=== PATIENT | male | born 1960 | race Caucasian/White ===

== ENCOUNTER → 2017-12-09 | Outpatient (CLI) | payer OTHER ==
--- NOTE | 2017-12-09 16:16 | US ---
EXAMINATION TYPE: US carotid duplex BILAT DATE OF EXAM: 12/09/2017 COMPARISON: NONE CLINICAL HISTORY: Z82.49 Family history of ischemic heart disease. Borderline HTN. No hx of TIA's or stroke. No surgeries. EXAM MEASUREMENTS: RIGHT: Peak Systolic Velocity (PSV) cm/sec ----- Right CCA: 114.4 ----- Right ICA: 95.5 ----- Right ECA: 71.2 ICA/CCA ratio: 0.8 RIGHT: End Diastole cm/sec ----- Right CCA: 36.1 ----- Right ICA: 36.1 ----- Right ECA: 9.3 LEFT: Peak Systolic Velocity (PSV) cm/sec ----- Left CCA: 122.0 ----- Left ICA: 85.5 ----- Left ECA: 77.3 ICA/CCA ratio: 0.7 LEFT: End Diastole cm/sec ----- Left CCA: 48.8 ----- Left ICA: 31.5 ----- Left ECA: 13.6 VERTEBRALS (direction of flow): Right Vertebral: Antegrade Left Vertebral: Antegrade Rhythm: Normal IMPRESSION: No plaque, wall thickening, significant stenosis or elevated velocities visualized. Criteria for Assigning % of Stenosis / Diameter reduction (Estimation based on the indirect measurements of the internal carotid artery velocities (ICA PSV). 1. Normal (no stenosis)=ICA PSV < 125 cm/s: ratio < 2.0: ICA EDV<40 cm/s. 2. Less than 50% stenosis=ICA PSV < 125 cm/s: ratio < 2.0: ICA EDV<40 cm/s. 3. 50 to 69% stenosis=ICA PSV of 125 to 230 cm/s: ration 2.0 ? 4.0: ICA EDV 40-100 cm/s. 4. Greater than 70% stenosis to near occlusion= ICA PSV > 230 cm/s: ratio > 4.0: ICA EDV > 100 cm/s. 5. Near occlusion= ICA PSV velocities may be low or undetectable: variable ratio and ICA EDV. 6. Total occlusion=unable to detect flow.
--- NOTE | 2017-12-10 08:51 | ECHOF ---
Referral Reason:Z82.49 Family history of ischemic heart disease MEASUREMENTS -------- HEIGHT: 172.7 cm WEIGHT: 81.6 kg BP: RVIDd: 3.6 cm (< 3.3) IVSd: 1.1 cm (0.6 - 1.1) LVIDd: 3.9 cm (3.9 - 5.3) LVPWd: 1.1 cm (0.6 - 1.1) IVSs: 1.5 cm LVIDs: 2.6 cm LVPWs: 1.6 cm Ao Diam: 3.8 cm (2.0 - 3.7) AV Cusp: 2.8 cm (1.5 - 2.6) LA Diam: 2.7 cm (2.7 - 3.8) MV E Miguelito: 0.79 m/s MV DecT: 215 ms MV A Miguelito: 0.87 m/s MV E/A Ratio: 0.92 AR PHT: 277 ms RAP: 5.00 mmHg RVSP: 36.78 mmHg FINDINGS -------- Sinus rhythm. This was a technically good study. The left ventricular size is normal. Left ventricular wall thickness is normal. Overall left vent ricular systolic function is normal with, an EF between 55 - 60 %. The right ventricle is normal in size and function. The left atrium is normal in size. The right atrium is normal in size. Trace amount of aortic regurgitation. The mitral valve leaflets are mildly thickened. There is trace mitral regurgitation. Trace tricuspid regurgitation present. The right ventricular systolic pressure, as measured by Dopp ler, is 36.78mmHg. Pulmonic valve appears structurally normal. The aortic root is mildy dilated. The pericardium is normal. CONCLUSIONS -------- 1. Sinus rhythm. 2. This was a technically good study. 3. The left ventricular size is normal. 4. Left ventricular wall thickness is normal. 5. Overall left ventricular systolic function is normal with, an EF between 55 - 60 %. 6. The right ventricle is normal in size and function. 7. The left atrium is normal in size. 8. The right atrium is normal in size. 9. Trace amount of aortic regurgitation. 10. The mitral valve leaflets are mildly thickened. 11. There is trace mitral regurgitation. 12. Trace tricuspid regurgitation present. 13. The right ventricular systolic pressure, as measured by Doppler, is 36.78mmHg. 14. Pulmonic valve appears structurally normal. 15. The aortic root is mildy dilated. 16. The pericardium is normal. SENIOR TEST ANALYST: Bri Ann RDCS
== END | disposition home or self-care (01) ==
LOC: RADECHMAIN 14:55
PROVIDERS: ATTEND Family Medicine
DX: Z13.6 Encounter for screening for cardiovascular disorders (principal); E78.2 Mixed hyperlipidemia; I05.9 Rheumatic mitral valve disease, unspecified; I77.819 Aortic ectasia, unspecified site; Z82.49 Family history of ischemic heart disease and other diseases of the circulatory system; Z87.891 Personal history of nicotine dependence
CPT/HCPCS: 93306; 93880

== ENCOUNTER → 2017-12-10 | Outpatient (CLI) | payer OTHER ==
--- NOTE | 2017-12-10 11:18 | US ---
EXAMINATION TYPE: US duplex aorta DATE OF EXAM: 12/10/2017 COMPARISON: NONE CLINICAL HISTORY: E78.2 Mixed hyperlipidemia, Z82.49 Family hx ische. Brother and Father with AAA. EXAM MEASUREMENTS: Abdominal Aorta: Proximal: 2.3 x 2.1 cm Mid: 2.0 x 2.0 cm Distal: 1.7 x 1.6 cm Bifurcation: 1.1 cm 1.2 cm No aneurysm seen at this time. IMPRESSION: 1. Aorta taper normally through its visualized course without evidence of aortic aneurysm.
--- NOTE | 2017-12-10 12:07 | US ---
EXAMINATION TYPE: US kidneys/renal and bladder DATE OF EXAM: 12/10/2017 COMPARISON: NONE CLINICAL HISTORY: E78.2 Mixed hyperlipidemia, Z82.49 Family hx ische. EXAM MEASUREMENTS: Right Kidney: 12.2 x6.1 x 4.7 cm Left Kidney: 11.7 x 6.0 x 4.8 cm Post Void Residual Volume: 42.9 mL Right Kidney: No hydronephrosis or masses seen Left Kidney: No hydronephrosis or masses seen Bladder: wnl Bilateral Jets seen: Yes Normal Post Void Residual: Yes IMPRESSION: 1. Normal retroperitoneal ultrasound.
== END | disposition home or self-care (01) ==
LOC: RADUSWWP 06:59
PROVIDERS: ATTEND Family Medicine
DX: Z13.6 Encounter for screening for cardiovascular disorders (principal); E78.2 Mixed hyperlipidemia; Z82.49 Family history of ischemic heart disease and other diseases of the circulatory system; Z87.891 Personal history of nicotine dependence
CPT/HCPCS: 76770; 93979

== ENCOUNTER → 2024-02-11 | Outpatient (CLI) | payer BC ==
--- NOTE | 2024-02-11 12:30 | USB ---
Reason for Exam: Clinical finding. Technique: Method: Targeted. Findings: The axilla of the right breast was scanned. There is an ill-defined iso to hypoechoic area measuring approximately 5.9 x 2.6 x 4.5 cm at the area of clinical concern. This is nonspecific and may be a lipoma. Recommend contrast MRI to evaluate for more aggressive etiologies such as liposarcoma. There is a lymph node adjacent to the major axillary vessels with borderline cortex thickness. This can also be evaluated with MRI. Overall Assessment: Probably benign, BI-RAD 3 Management: Clinical Management of the right breast in 1 day. A clinical breast exam by your physician is recommended on an annual basis and results should be correlated with mammographic findings. This exam should not preclude additional follow-up of suspicious palpable abnormalities. Results were given to the patient verbally at the time of exam. [facility], , 02/11/2024 7:27 AM . Electronically signed and approved by: Anton Mcgarry D.O. Radiologis
== END | disposition home or self-care (01) ==
LOC: RADUSWWP 07:07
PROVIDERS: ATTEND Family Medicine
DX: N63.31 Unspecified lump in axillary tail of the right breast (principal)